=== PATIENT | male | born 1945 ===

== ENCOUNTER → 2017-10-25 | Outpatient (CLI) | payer BC ==
[~2017-10-25] MED LIST: BENAZEPRIL HCL5 MG; LASIX20 MG; METFORMIN HCL1000 M1; NITROGLYCERIN0.4 MG; TOPROL XL25 MG; ZOCOR40 MG; ZOLOFT50 MG
== END | disposition home or self-care (01) ==
LOC: PPHC 10:13
DX: Z76.0 Encounter for issue of repeat prescription (principal)